=== PATIENT | male | born 1960 | race Caucasian/White ===

== ENCOUNTER 2017-06-20 11:34 | Outpatient (CLI) | payer BC ==
--- NOTE | 2017-06-20 12:15 | Diagnostic Imaging Report ---
Indication: Cough Technique: 2 views of the chest Comparison: 09/15/2015 Findings: Lungs and pleural spaces are clear. The heart size is normal. The bones are unremarkable. No significant interim change. Impression: Negative
== END 2017-06-20 13:34 | disposition home or self-care (01) ==
LOC: RAD 11:34
DX: R05 Cough (principal)
CPT/HCPCS: 71046

== ENCOUNTER 2017-06-30 09:32 | Day surgery (SDC) | payer BC ==
[2017-06-30] VITALS (11 sets, daily range): BP systolic 92–102; BP diastolic 56–69
[~2017-06-30] VITALS: Ht 180.3 cm; Wt 107.0 kg
[~2017-06-30 09:32] MED LIST: HYDROCHLOROTH12.5 M2 ORAL; LOTREL 10-20 M1 EACH ORAL; VALACYCLOVIR500 MG ORAL; ceFAZolin 1gm in D5W 55ml IVPB SCH; celeBREX 200mg Cap **SURGERY PATIENTS ONLY ORAL SCH; oxyCONTIN 20mg tab ORAL SCH
--- NOTE | 2017-06-30 10:18 | Pre-Procedure Note/Attestation ---
Pre-Procedure Note/Attestation Complete Prior to Procedure Planned Procedure: left Procedure Narrative: shoulder arthroscopic rc repair, sad Indications for Procedure Pre-Operative Diagnosis: left shulder rct, impingement Attestation I attest that I discussed the nature of the procedure; its benefits; risks and complications; and alternatives (and the risks and benefits of such alternatives ), prior to the procedure, with the patient (or the patient's legal customer care representative). I attest that, if there was a reasonable possibility of needing a blood transfusion, the patient (or the patient's legal customer care representative) was given the [facility] standardized written summary, pursuant to the Rick Jordyn Blood Safety Act ([place] Health and Safety Code # 1645, as amended). I attest that I re-evaluated the patient just prior to the surgery and that there has been no change in the patient's H&P, except as documented below: RAÚL GOETZ Jun 30, 2017 10:18
--- NOTE | 2017-06-30 10:18 | Operative Note - PDOC ---
Operative Note Operative Note Pre-op Diagnosis: left shulder rct, impingement Procedure: see op report Post-op Diagnosis: same as pre-op plus Operative Findings: consistent w/pre-op dx studies Anesthesia: regional Specimen: none Complications: none Condition: stable Estimated Blood Loss: none Implant(s) used?: Yes RAÚL GOETZ Jun 30, 2017 10:18
[2017-06-30] MEDS ORDERED: Tylenol #3 tab (300mg/30mg) ORAL PRN (10:30)
[2017-06-30] MEDS ORDERED: HYDROmorphone 1mg/ml Carpuject SUBQ PRN (10:30)
[2017-06-30] MEDS ORDERED: D5 1/2NS 1,000 ML IV SCH (10:30)
[2017-06-30] MEDS ORDERED: Norco 5mg/325mg tab ORAL PRN (10:30)
[2017-06-30] MEDS ORDERED: Ketorolac 30mg Inj ONE (14:00)
[2017-06-30] MEDS ORDERED: Zemuron 50mg/5ml Inj IV ONE (14:00)
[2017-06-30] MEDS ORDERED: LR 1000ml ONE (14:00)
[2017-06-30] MEDS ORDERED: Neostigmine 1mg/ml 10ml Inj ONE (14:00)
[2017-06-30] MEDS ORDERED: Sterile Water Irrig 1000ml IRRIG ONE (14:00)
[2017-06-30] MEDS ORDERED: Succinylcholine 20mg/ml 10ml vial ONE (14:00)
[2017-06-30] MEDS ORDERED: NS Irrig 4000ml IRRIG ONE ×2 (14:00→14:20)
[2017-06-30] MEDS ORDERED: Midazolam 2mg/2ml Inj ONE (14:57)
[2017-06-30] MEDS ORDERED: Propofol 200mg/20ml IV ONE (14:57)
[2017-06-30] MEDS ORDERED: Lidocaine 1% MPF 10mg/ml 5ml ONE (14:57)
[2017-06-30] MEDS ORDERED: fentaNYL 100 mcg/2 mL IV ONE (14:57)
[2017-06-30] MEDS ORDERED: Bupivacaine 0.25% Inj 30ml INJ ONE (15:01)
[2017-06-30] MEDS ORDERED: Lidocaine 1% 10mg/ml/Epi 0.005mg/ml 30ml vial INJ ONE (15:01)
[2017-06-30] MEDS ORDERED: EPINEPHrine 1mg/1ml Amp ONE (15:01)
[2017-06-30] MEDS ORDERED: LR 1000ml 1,000 ML IVLG SCH (16:08)
--- NOTE | 2017-06-30 16:08 | Anethesia Preoperative Eval ---
Anesthesia Pre-op PMH/ROS General Date of Evaluation: Jun 30, 2017 Time of Evaluation: 14:50 Anesthesiologist: Klesea ASA Score: ASA 2 Mallampati Score Class I : Soft palate, uvula, fauces, pillars visible Class II: Soft palate, uvula, fauces visible Class III: Soft palate, base of uvula visible Class IV: Only hard plate visible Mallampati Classification: Class II Surgeon: Everett Diagnosis: L shoulder pain Surgical Procedure: L shoulder scope Anesthesia History: none Family History: no anesthesia problems Allergies: Coded Allergies: No Known Allergies (Unverified , 06/29/17) Medications: see eMAR Past Medical History Cardiovascular: Reports: HTN - mild; Denies: CAD, [place], valve dz, arrhythmia, other Pulmonary: Denies: asthma, COPD, ZEINA, other Gastrointestinal/Genitourinary: Reports: GERD - mild; Denies: CRI, ESRD, other Neurologic/Psychiatric: Denies: dementia, CVA, depression/anxiety, TIA, other Endocrine: Denies: DM, hypothyroidism, steroids, other HEENT: Denies: cataract (L), cataract (R), glaucoma, AKIAK (L), AKIAK (R), other Hematology/Immune: Denies: anemia, DVT, bleeding disorder, other Musculoskeletal/Integumentary: Denies: OA, RA, DJD, DDD, edema, other Other: other - overweight PMH Narrative: as above PSxH Narrative: R hip replacement, knee scopes Anesthesia Pre-op Phys. Exam Physician Exam Last Vital Signs Date Time Temp Pulse Resp B/P (MAP) Pulse Ox O2 Delivery O2 Flow Rate FiO2 06/30/17 10:08 97.9 67 18 101/68 95 Room Air 97.9 Constitutional: NAD Neurologic: CN 2-12 intact Cardiovascular: RRR, no M/R/G Respiratory: CTA Airway Exam Mallampati Score: Class II MO: full Neck: flexible ROM: full Teeth: intact Dentures: no upper, no lower Anesthesia Pre-op A/P Labs see chart Studies Pre-op Studies: EKG - NSR Risk Assessment & Plan Assessment: ASA 2 Plan: GA with ETT L brachial plexus block for p/op pain control Status Change Before Surgery: No Pre-Antibiotics Drug: Ancef 2 grDALY JHA M.D. Jun 30, 2017 16:08
[2017-06-30] MEDS ORDERED: Ketorolac 30mg Inj IV PRN (16:15)
[2017-06-30] MEDS ORDERED: Midazolam 2mg/2ml Inj IVP PRN (16:15)
[2017-06-30] MEDS ORDERED: DiphenhydrAMINE 50mg/ml Inj IVP PRN (16:15)
[2017-06-30] MEDS ORDERED: Meperidine 50mg/ml Inj(FOR RIGORS ONLY) IV PRN (16:15)
[2017-06-30] MEDS ORDERED: Glycopyrrolate 0.2mg/ml 1ml Vial ONE (16:16)
--- NOTE | 2017-06-30 17:03 | Immediate Post-Op Evaluation ---
Immediate Post-Op Evalulation Immediate Post-Op Evalulation Procedure: L shoulder scope RC repair Date of Evaluation: Jun 30, 2017 Time of Evaluation: 17:02 IV Fluids: 1500 Blood Products: none Estimated Blood Loss: 50 Urinary Output: none Blood Pressure Systolic: 95 Blood Pressure Diastolic: 62 Pulse Rate: 88 Respiratory Rate: 20 O2 Sat by Pulse Oximetry: 99 Temperature (Fahrenheit): 97.5 Pain Score (1-10): 2 Nausea: No Vomiting: No Complications none Patient Status: reacts, patent, extubated, none DALY CONNOLLY M.D. Jun 30, 2017 17:03
--- NOTE | 2017-06-30 17:28 | 48 Hour Post Anesthesia Eval ---
Post Anesthesia Evaluation Procedure: L shoulder scope RC repair Date of Evaluation: Jun 30, 2017 Time of Evaluation: 17:27 Blood Pressure Systolic: 98 0: 56 Pulse Rate: 78 Respiratory Rate: 20 Temperature (Fahrenheit): 98.0 O2 Sat by Pulse Oximetry: 98 Airway: patent Nausea: No Vomiting: No Pain Intensity: 2 Hydration Status: adequate Cardiopulmonary Status: stable Mental Status/LOC: patient returned to baseline Follow-up Care/Observations: n/a Post-Anesthesia Complications: none Follow-up care needed: ready to discharge DALY CONNOLLY M.D. Jun 30, 2017 17:28
--- NOTE | 2017-06-30 18:30 | Operative Note - Dictated ---
DATE OF OPERATION: 06/30/2017 PREOPERATIVE DIAGNOSES: 1. Left shoulder full-thickness rotator cuff tear. 2. Impingement syndrome. 3. AC joint arthropathy. POSTOPERATIVE DIAGNOSES: 1. Left shoulder full-thickness rotator cuff tear. 2. Impingement syndrome. 3. AC joint arthropathy. PROCEDURES: 1. Left shoulder arthroscopy and extensive intra-articular debridement. 2. Left shoulder arthroscopic rotator cuff repair. 3. Left shoulder subacromial decompression and bursectomy. 4. Left shoulder AC joint coplaning. SURGEON: Jayson Floyd M.D. ANESTHESIA: Interscalene with general. INDICATION FOR PROCEDURE: The patient is a pleasant gentleman who has had progressive left shoulder pain. The patient had MRI which showed full-thickness rotator cuff tear. He had difficulty with overhead activities and nighttime pain, and elected to undergo left shoulder arthroscopy and rotator cuff repair. Risks, limitations, expectations, and complications of procedure were discussed in detail. All questions were addressed. DESCRIPTION OF PROCEDURE: After informed consent was obtained, the patient was brought to the operating room and placed under interscalene and general anesthesia. The patient was then placed in beach-chair position. Left shoulder was prepped and draped in sterile manner. Time-out was performed. Portal sites were injected with 0.25% Marcaine and epi. Inferolateral stab incision was then made. Trocar was introduced into the shoulder joint. There was some fraying of the superior labrum. No articular or chondral damage. There was an area of full-thickness tear along the anterior edge of the supraspinatus. A shaver was then placed into the shoulder joint and extensive intra-articular debridement was performed. Once that was done, the camera was repositioned in the subacromial space and complete bursectomy was completed. The undersurface of the acromion was identified. He had a pretty significant bone spur. Acromioplasty was started from lateral to medial and completed from posterior to anterior. Once that was done, arthroscopic anchor was placed lateral to the articular margin and two mattress sutures were placed along with lateral row of suture. The rotator cuff was cinched down. The footprint was re-created. The instruments were removed. The portal site was closed with 3-0 Monocryl sutures. Steri-Strips and sterile dressing were applied. The patient was awoken and taken to recovery room with stable vital signs. ESTIMATED BLOOD LOSS: None. COMPLICATIONS: None. SPECIMENS: None. IMPLANTS: Include two arthroscopic anchors. Jayson Floyd M.D. DR: Melissa JOB#: [id number] CC: LIDIA
== END 2017-06-30 18:53 | disposition home or self-care (01) ==
LOC: SUR 09:32
DX: M75.122 Complete rotator cuff tear or rupture of left shoulder, not specified as traumatic (principal); M75.42 Impingement syndrome of left shoulder; M19.012 Primary osteoarthritis, left shoulder; I10 Essential (primary) hypertension; Z96.641 Presence of right artificial hip joint; E78.2 Mixed hyperlipidemia; K21.9 Gastro-esophageal reflux disease without esophagitis
CPT/HCPCS: 29826; 29827; J0171; J1885; J2250; J2405; J2704; J3010; J3490; J2710

== ENCOUNTER 2017-11-24 15:08 | Outpatient (CLI) | payer BC ==
[~2017-11-24 15:08] MED LIST changes: -ceFAZolin 1gm in D5W 55ml IVPB SCH; -celeBREX 200mg Cap **SURGERY PATIENTS ONLY ORAL SCH; -oxyCONTIN 20mg tab ORAL SCH
--- NOTE | 2017-11-24 16:14 | Diagnostic Imaging Report ---
Indication: Cough Comparison: 06/20/2017 2 views of the chest obtained. Findings: Cardiomediastinal silhouette and pulmonary vascularity are within normal limits for age. The diaphragmatic contour is smooth and costophrenic angles are sharp. No pleural effusions are identified. The bones are unremarkable. Impression: No acute disease
== END 2017-11-24 17:08 | disposition home or self-care (01) ==
LOC: RAD 15:08
DX: R05 Cough (principal)
CPT/HCPCS: 71046